=== PATIENT | female | born 2000 | race Caucasian/White ===

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

== ENCOUNTER 2022-09-11 08:55 | Emergency (ER) | payer OTHER ==
[2022-09-11 09:29] LABS: Absolute Neutrophil Ct (ANC) 4.43 x10^3/uL (1.4-6.9); Basophil (Absolute #) 0.02 x10^3/uL (0-0.4); Eosinophil % 0.5 % (0.00-5.0); Eosinophil (Absolute #) 0.03 x10^3/uL (0-0.5); Lymphocyte (Absolute #) 1.52 x10^3/uL (1.0-4.6); Lymphocytes % 23.9 % (24.0-44.0); Mean Cell Volume 91.4 fL (78-100); Mean Corpuscular Hemoglobin 31.3 pg (26-32); Mean Corpuscular Hgb Concent. 34.3 g/dL (32-36); Monocyte (Absolute #) 0.35 x10^3/uL (0.0-1.3); Monocytes % 5.5 % (0.0-12.0); Neutrophil % 69.6 % (36.0-66.0); Platelet Count 257 x10^3/uL (150-450); Red Blood Count 3.83 x10^6/uL (4.1-5.4); White Blood Count 6.4 x10^3/uL (4.0-10.5)
[2022-09-11 09:44] LABS: ALBUMIN 4.5 g/dL (3.5-5.0); ALKALINE PHOSPHATASE 55 U/L (38-126); ANION GAP 10.1 MEQ/L (5-15); BLOOD UREA NITROGEN 7 mg/dL (7-17); CHLORIDE 105 mmol/L (98-107); Calcium 9.1 mg/dL (8.4-10.2); Carbon Dioxide 24 mmol/L (22-30); Creatinine 1 0.54 mg/dL (0.52-1.04); EST GLOMERULAR FILTRATION RATE > 60.0 ML/MIN; Glucose 95 mg/dL (74-106); Potassium 3.8 mmol/L (3.5-5.1); SGOT/AST 20 U/L (14-36); SGPT/ALT 21 U/L (0-35); SODIUM 135 mmol/L (137-145); Total Protein 7.3 g/dL (6.3-8.2)
[2022-09-11 09:56] LABS: Epithelial Cells RARE /HPF (FEW); Mucus SLIGHT /HPF (NEGATIVE)
[2022-09-11 10:00] LABS: Appearance CLEAR (CLEAR); Bilirubin NEGATIVE (NEGATIVE); Dipstick done @ ? MAIN LAB; Glucose NEGATIVE (NEGATIVE); Ketones NEGATIVE (NEGATIVE); Nitrite NEGATIVE (NEGATIVE); Protein,Urine Dip NEGATIVE (Negative); RBC NEGATIVE Ery/ul (0-5); Urobilinogen 0.2 mg/dL (0-1)
[2022-09-11 10:01] LABS: Urine Cultured Indicated? NO
--- NOTE | 2022-09-11 11:22 | ERPHSYRPT ---
- History of Present Illness Time Seen by Provider: 09/11/22 10:47 Source: patient Exam Limitations: no limitations Patient Subjective Stated Complaint: C/O some dark bleeding from vagina this am when getting into the shower; no clots. Indicates she has been cramping for a few weeks. OB is Dr. Hoskins. States she had an ultrasound on , 09/09/22 due to the cramping issue. Dr. Hoskins advised patient to come into the ED today due to the new bleeding this am. Triage Nursing Assessment: Patient ambulated back to ED without difficulties. She is alert and oriented. NO SOB. No active vaginal bleeding at this time; she does have on a maxi pad. Physician History: 21-year-old 2 para 1 at almost 6 weeks gestation presented in the ER with chief complaint of pelvic cramping and vaginal bleeding. Patient reports she has been having off-and-on cramping for last couple of weeks and was seen at primary OB and had ultrasound done which was okay per patient. This morning she was in the shower and noticed dark red blood per vaginal without any clots or passing of tissues. She called her OB and was recommended to be seen in the ER. Denies any urinary symptoms. Timing/Duration: today, gradual onset, improved Activites at Onset: other Quality: cramping Onset Location: pelvic pain Pain Radiation: none Severity of Pain-Max: mild Severity of Pain-Current: none Prior abdominal problems: none Modifying Factors: Improves With: nothing Associated Symptoms: denies symptoms Allergies/Adverse Reactions: No Known Drug Allergies Allergy (Verified 09/11/22 09:18) Home Medications: Vits W-Ca,Fe,FA(<1Mg) [] 1 each PO DAILY 03/12/19 [History] Hx Tetanus, Diphtheria Vaccination/Date Given: Yes Hx Influenza Vaccination/Date Given: Yes Hx Pneumococcal Vaccination/Date Given: No Travel Risk - International Travel Have you traveled outside of the country in past 3 weeks: No - Coronavirus Screening Are you exhibiting any of the following symptoms?: No Close contact with a COVID-19 positive Pt in past 14-21 Days: No - Vaccine Status Have you recieved a Covid-19 vaccination: Yes [employer]: [employer] - Vaccination Dates Date of 2cond Vaccination (if applicable): 2020 - Review of Systems Constitutional: No Symptoms Eyes: No Symptoms Ears, Nose, & Throat: No Symptoms Respiratory: No Symptoms Cardiac: No Symptoms Abdominal/Gastrointestinal: No Symptoms Genitourinary Symptoms: , Vaginal Bleeding Musculoskeletal: No Symptoms Skin: No Symptoms Neurological: No Symptoms Psychological: No Symptoms Hematologic/Lymphatic: No Symptoms Immunological/Allergic: No Symptoms - Past Medical History Pertinent Past Medical History: Yes Cardiac History: Other Other Medical History: Heart murmur - Past Surgical History Past Surgical History: Yes - Social History Smoking Status: Never smoker Exposure to second hand smoke: No Drug Use: none Patient Lives Alone: No - Female History Hx Now: Yes Gestational Age: 6 weeks - Nursing Vital Signs Nursing Vital Signs: Initial Vital Signs Temperature 98.5 F 09/11/22 09:06 Pulse Rate 99 H 09/11/22 09:06 Respiratory Rate 16 09/11/22 09:06 Blood Pressure 137/94 09/11/22 09:06 O2 Sat by Pulse Oximetry 99 09/11/22 09:06 Pain Scale Pain Intensity 0 - Physical Exam General Appearance: no apparent distress Eye Exam: PERRL/EOMI Ears, Nose, Throat Exam: normal ENT inspection Neck Exam: normal inspection, full range of motion Respiratory Exam: normal breath sounds, lungs clear Cardiovascular Exam: regular rate/rhythm, normal heart sounds Gastrointestinal/Abdomen Exam: soft, normal bowel sounds, No tenderness Back Exam: normal inspection, normal range of motion Extremity Exam: normal inspection, normal range of motion Neurologic Exam: alert, oriented x 3, normal mood/affect Skin Exam: normal color SpO2 Interpretation: normal SpO2: 99 O2 Delivery: Room Air Ordered Tests: Active Orders 24 hr Category Date Time Status OB FOLLOW UP PER [facility] [US] Stat Exams 09/11/22 09:21 Completed CBC W DIFF Stat Lab 09/11/22 09:25 Completed CMP Stat Lab 09/11/22 09:25 Completed HCG, Quantitative (Inhouse) Stat Lab 09/11/22 09:25 Completed UA W/RFX CULTURE Stat Lab 09/11/22 09:23 Completed Lab/Rad Data: Laboratory Result Diagrams 09/11/22 09:25 09/11/22 09:25 Laboratory Results 09/11/22 09/11/22 09/11/22 Range/Units 11:52 09:25 09:25 WBC (4.0-10.5) x10^3/uL RBC (4.1-5.4) x10^6/uL Hgb (12.0-16.0) g/dL Hct (35-47) % MCV (78-100) fL MCH (26-32) pg MCHC (32-36) g/dL RDW (11.5-14.0) % Plt Count (150-450) x10^3/uL MPV (7.5-11.0) fL Gran % (36.0-66.0) % Immature Gran % (Auto) (0.00-0.4) % Nucleat RBC Rel Count (0.00-0.1) % Eos # (Auto) (0-0.5) x10^3/uL Immature Gran # (Auto) (0.00-0.03) x10^3u/L Absolute Lymphs (auto) (1.0-4.6) x10^3/uL Absolute Monos (auto) (0.0-1.3) x10^3/uL Absolute Nucleated RBC (0.00-0.01) x10^3u/L Lymphocytes % (24.0-44.0) % Monocytes % (0.0-12.0) % Eosinophils % (0.00-5.0) % Basophils % (0.0-0.4) % Absolute Granulocytes (1.4-6.9) x10^3/uL Basophils # (0-0.4) x10^3/uL Sodium 135 L (137-145) mmol/L Potassium 3.8 (3.5-5.1) mmol/L Chloride 105 (98-107) mmol/L Carbon Dioxide 24 (22-30) mmol/L Anion Gap 10.1 (5-15) MEQ/L BUN 7 (7-17) mg/dL Creatinine 0.54 (0.52-1.04) mg/dL Estimated GFR > 60.0 ML/MIN Glucose 95 (74-106) mg/dL Calcium 9.1 (8.4-10.2) mg/dL Total Bilirubin 0.60 (0.2-1.3) mg/dL AST 20 (14-36) U/L ALT 21 (0-35) U/L Alkaline Phosphatase 55 (38-126) U/L Serum Total Protein 7.3 (6.3-8.2) g/dL Albumin 4.5 (3.5-5.0) g/dL Beta HCG, Quant mIU/ml Urinalys Dipstick Clnc Urine Color (YELLOW) Urine Appearance (CLEAR) Urine pH (5-6) Ur Specific [place] (1.005-1.025) POC Urine Protein Conf (Negative) Urine Ketones (NEGATIVE) Urine Nitrite (NEGATIVE) Urine Bilirubin (NEGATIVE) Urine Urobilinogen (0-1) mg/dL Urine Leukocytes (NEGATIVE) Urine WBC (Auto) (0-5) /HPF Urine RBC (Auto) (0-2) /HPF U Epithel Cells (Auto) (FEW) /HPF Urine Bacteria (Auto) (NEGATIVE) /HPF Urine RBC (0-5) Irving/ul Urine Mucus (Auto) (NEGATIVE) /HPF Ur Culture Indicated? Urine Glucose (NEGATIVE) mg/dL ABO Group A Rh Factor POSITIVE Antibody Screen NEGATIVE (NEGATIVE) 09/11/22 09/11/22 Range/Units 09:25 09:23 WBC 6.4 (4.0-10.5) x10^3/uL RBC 3.83 L (4.1-5.4) x10^6/uL Hgb 12.0 (12.0-16.0) g/dL Hct 35.0 (35-47) % MCV 91.4 (78-100) fL MCH 31.3 (26-32) pg MCHC 34.3 (32-36) g/dL RDW 12.0 (11.5-14.0) % Plt Count 257 (150-450) x10^3/uL MPV 9.0 (7.5-11.0) fL Gran % 69.6 H (36.0-66.0) % Immature Gran % (Auto) 0.2 (0.00-0.4) % Nucleat RBC Rel Count 0.0 (0.00-0.1) % Eos # (Auto) 0.03 (0-0.5) x10^3/uL Immature Gran # (Auto) 0.01 (0.00-0.03) x10^3u/L Absolute Lymphs (auto) 1.52 (1.0-4.6) x10^3/uL Absolute Monos (auto) 0.35 (0.0-1.3) x10^3/uL Absolute Nucleated RBC 0.00 (0.00-0.01) x10^3u/L Lymphocytes % 23.9 L (24.0-44.0) % Monocytes % 5.5 (0.0-12.0) % Eosinophils % 0.5 (0.00-5.0) % Basophils % 0.3 (0.0-0.4) % Absolute Granulocytes 4.43 (1.4-6.9) x10^3/uL Basophils # 0.02 (0-0.4) x10^3/uL Sodium (137-145) mmol/L Potassium (3.5-5.1) mmol/L Chloride (98-107) mmol/L Carbon Dioxide (22-30) mmol/L Anion Gap (5-15) MEQ/L BUN (7-17) mg/dL Creatinine (0.52-1.04) mg/dL Estimated GFR ML/MIN Glucose (74-106) mg/dL Calcium (8.4-10.2) mg/dL Total Bilirubin (0.2-1.3) mg/dL AST (14-36) U/L ALT (0-35) U/L Alkaline Phosphatase (38-126) U/L Serum Total Protein (6.3-8.2) g/dL Albumin (3.5-5.0) g/dL Beta HCG, Quant mIU/ml Urinalys Dipstick Clnc MAIN LAB Urine Color YELLOW (YELLOW) Urine Appearance CLEAR (CLEAR) Urine pH 7.0 (5-6) Ur Specific [place] 1.020 (1.005-1.025) POC Urine Protein Conf NEGATIVE (Negative) Urine Ketones NEGATIVE (NEGATIVE) Urine Nitrite NEGATIVE (NEGATIVE) Urine Bilirubin NEGATIVE (NEGATIVE) Urine Urobilinogen 0.2 (0-1) mg/dL Urine Leukocytes NEGATIVE (NEGATIVE) Urine WBC (Auto) NONE (0-5) /HPF Urine RBC (Auto) NONE (0-2) /HPF U Epithel Cells (Auto) RARE (FEW) /HPF Urine Bacteria (Auto) NONE (NEGATIVE) /HPF Urine RBC NEGATIVE (0-5) [place]/ul Urine Mucus (Auto) SLIGHT A (NEGATIVE) /HPF Ur Culture Indicated? NO Urine Glucose NEGATIVE (NEGATIVE) mg/dL ABO Group Rh Factor Antibody Screen (NEGATIVE) - Progress Progress: improved Air Movement: good Progress Note: 09/11/22 11:20 21-year-old is evaluated for vaginal bleeding. She is offered fluid but she does not want and preferred to take orally. Baseline work-up fairly unremarkable. Obtain ultrasound with heart tone in 110 and 5 weeks 6 day with small subchorionic hemorrhage. She is recommended pelvic rest, increase hydration and outpatient OB follow-up. Blood Culture(s) Obtained: No Antibiotics given: No Counseled pt/family regarding: lab results, diagnosis, need for follow-up, rad results - Departure Departure Disposition: Home Clinical Impression: Vaginal bleeding affecting early Condition: Stable Critical Care Time: No Referrals: BRYAN HOSKINS MD [Primary Care Provider] - Follow up/PCP as directed (In 2 days for reevaluation) Instructions: Threatened Miscarriage (DC), Bleeding in Early (DC) Additional Instructions: Drink plenty of fluids to keep yourself well-hydrated. Pelvic rest. Follow-up with your primary OB for reevaluation in 2 days. Return to ER for increased cramping, vaginal bleeding etc.
[2022-09-11 12:10] VITALS: BP 137/95; PULSE 102
[2022-09-11 13:04] VITALS: O2SAT 99
[2022-09-11 13:04] LABS: ABO TYPING A; Antibody Screen NEGATIVE (NEGATIVE); RH TYPING POSITIVE
--- NOTE | 2022-09-11 21:10 | XRAY ---
Indication: Bleeding. Two-dimensional transvaginal early OB ultrasound performed. Comparison: September 09, 2022 Again single intrauterine gestational sac with a single pole and yolk sac. Mean crown-rump length measures 0.28 cm corresponding to 5 weeks 6 days. heart rate 110 BPM. Tiny 2 x 2 x 3 mm subchorionic hemorrhage. Impression: Again single intrauterine measuring 5 weeks 6 days. heart rate 110 BPM. Tiny subchorionic hemorrhage. Comment: Preliminary report was given.
== END 2022-09-11 12:09 | disposition home or self-care (01) ==
LOC: ED 08:55
DX: O20.9 Hemorrhage in early pregnancy, unspecified (principal); Z3A.01 Less than 8 weeks gestation of pregnancy; R10.2 Pelvic and perineal pain
CPT/HCPCS: 36415; 76816; 80053; 81015; 84702; 85025; 86850; 86900; 86901; 99283

== ENCOUNTER 2023-04-25 04:59 | Inpatient (IN) | payer BC ==
[~2023-04-25 04:59] MED LIST: BRETHINE 1 MG/ML SQ PRN
[2023-04-25] MEDS ORDERED: Lactated Ringers 1,000 ML IV SCH (05:00)
[2023-04-25] MEDS ORDERED: Nubain 10 MG/ML IV PRN (05:00)
[2023-04-25] MEDS ORDERED: STADOL 2 MG IV PRN (05:00)
[2023-04-25] MEDS ORDERED: Zofran 4 MG/2 ML VIAL IV PRN (05:00)
[2023-04-25 05:43] LABS: Absolute Neutrophil Ct (ANC) 5.36 x10^3/uL (1.4-6.9); BASOPHIL % 0.4 % (0.0-0.4); Basophil (Absolute #) 0.03 x10^3/uL (0-0.4); Eosinophil % 0.3 % (0.00-5.0); Eosinophil (Absolute #) 0.02 x10^3/uL (0-0.5); Hematocrit 33.3 % (35-47); Hemoglobin 11.4 g/dL (12.0-16.0); IMMATURE GRAN # 0.09 x10^3u/L (0.00-0.03); IMMATURE GRAN % 1.2 % (0.00-0.4); Lymphocyte (Absolute #) 1.68 x10^3/uL (1.0-4.6); Lymphocytes % 21.5 % (24.0-44.0); Mean Cell Volume 92.8 fL (78-100); Mean Corpuscular Hemoglobin 31.8 pg (26-32); Mean Corpuscular Hgb Concent. 34.2 g/dL (32-36); Mean Platelet Volume 9.4 fL (7.5-11.0); Monocyte (Absolute #) 0.62 x10^3/uL (0.0-1.3); Monocytes % 7.9 % (0.0-12.0); Neutrophil % 68.7 % (36.0-66.0); Platelet Count 199 x10^3/uL (150-450); Red Blood Count 3.59 x10^6/uL (4.1-5.4); Red Cell Distribution Width 12.4 % (11.5-14.0); White Blood Count 7.8 x10^3/uL (4.0-10.5)
[2023-04-25] MEDS: PITOCIN 30 UNITS/ LR 500 ML 30 UNITS/500 ML PLAST..BAG IV SCH ×2 (05:45→05:47)
[2023-04-25 06:08] LABS: Amphetamine,Urine NEGATIVE (NEGATIVE); Barbiturate,Urine NEGATIVE (NEGATIVE); Benzodiazepine,Urine NEGATIVE (NEGATIVE); Cocaine,Urine NEGATIVE (NEGATIVE); Methadone,Urine NEGATIVE (NEGATIVE); Opiate,Urine NEGATIVE (NEGATIVE); PCP,Urine NEGATIVE (NEGATIVE); THC,Urine NEGATIVE (NEGATIVE)
[2023-04-25 06:28] LABS: ABO TYPING A; Antibody Screen NEGATIVE (NEGATIVE); RH TYPING POSITIVE
[2023-04-25] MEDS ORDERED: Lactated Ringers 1,000 ML IV ONE (07:29)
[2023-04-25] MEDS ORDERED: Ephedrine Sulfate 50 MG/ML IV PRN (07:29)
[2023-04-25] MEDS ORDERED: FENTANYL 2 MCG-BUPIV 0.125%-NS 250 ML Epidur 250 ML EPIDURAL SCH (07:30)
[2023-04-25] MEDS ORDERED: MOTRIN 400 MG PO PRN (12:00)
[2023-04-25] MEDS ORDERED: XYLOCAINE 1% HCL 20 ML MDV IJ PRN (12:00)
[2023-04-25] MEDS ORDERED: LANSINOH 40 GM TOP PRN (12:00)
[2023-04-25] MEDS ORDERED: Dermoplast Spray TP PRN (12:00)
[2023-04-25] MEDS: TUCKS TP PRN (15:22)
[2023-04-25] MEDS: TYLENOL EXTRA STRENGTH 500 MG PO PRN (20:10)
[2023-04-26] MEDS: TYLENOL EXTRA STRENGTH 500 MG PO PRN ×2 (02:13→11:27)
[2023-04-26 04:36] LABS: Absolute Neutrophil Ct (ANC) 4.97 x10^3/uL (1.4-6.9); BASOPHIL % 0.5 % (0.0-0.4); Basophil (Absolute #) 0.04 x10^3/uL (0-0.4); Eosinophil % 0.4 % (0.00-5.0); Eosinophil (Absolute #) 0.03 x10^3/uL (0-0.5); Hematocrit 30.2 % (35-47); Hemoglobin 10.2 g/dL (12.0-16.0); IMMATURE GRAN # 0.07 x10^3u/L (0.00-0.03); IMMATURE GRAN % 0.9 % (0.00-0.4); Lymphocyte (Absolute #) 1.98 x10^3/uL (1.0-4.6); Lymphocytes % 25.6 % (24.0-44.0); Mean Cell Volume 93.8 fL (78-100); Mean Corpuscular Hemoglobin 31.7 pg (26-32); Mean Corpuscular Hgb Concent. 33.8 g/dL (32-36); Mean Platelet Volume 9.4 fL (7.5-11.0); Monocyte (Absolute #) 0.63 x10^3/uL (0.0-1.3); Monocytes % 8.2 % (0.0-12.0); Neutrophil % 64.4 % (36.0-66.0); Platelet Count 156 x10^3/uL (150-450); Red Blood Count 3.22 x10^6/uL (4.1-5.4); Red Cell Distribution Width 12.4 % (11.5-14.0); White Blood Count 7.7 x10^3/uL (4.0-10.5)
[2023-04-26 08:00] VITALS: RESP 16; O2SAT 96
--- NOTE | 2023-04-26 09:44 | PCM.DS ---
Discharge Summary Date of Admission: 04/25/23 08:43 Admitting Physician: BRYAN HOSKINS Primary Care Provider: BRYAN HOSKINS Allergies Allergies No Known Drug Allergies Allergy (Verified 09/21/22 09:13) Hospital Summary - Hospital Course Hospital Course: patient induced and had an uncomplicated at 39wks, well and has no problems or concerns. - Vitals & Intake/Output Vital Signs: Vital Signs Temperature 97.9 F 04/26/23 07:56 Pulse Rate 78 04/26/23 07:56 Respiratory Rate 16 04/26/23 07:56 Blood Pressure 126/79 04/26/23 07:56 O2 Sat by Pulse Oximetry 96 04/26/23 07:56 Intake & Output: Intake & Output 04/23/23 04/24/23 04/25/23 04/26/23 11:59 11:59 11:59 11:59 Intake Total 1650 650 Output Total 600 Balance 1650 50 Weight 68.039 kg - Lab Result Diagrams: 04/26/23 04:27 Lab Results-Last 24 Hrs: Lab Results-Last 24 Hours 04/26/23 Range/Units 04:27 WBC 7.7 (4.0-10.5) x10^3/uL RBC 3.22 L (4.1-5.4) x10^6/uL Hgb 10.2 L (12.0-16.0) g/dL Hct 30.2 L (35-47) % MCV 93.8 (78-100) fL MCH 31.7 (26-32) pg MCHC 33.8 (32-36) g/dL RDW 12.4 (11.5-14.0) % Plt Count 156 (150-450) x10^3/uL MPV 9.4 (7.5-11.0) fL Gran % 64.4 (36.0-66.0) % Immature Gran % (Auto) 0.9 H (0.00-0.4) % Nucleat RBC Rel Count 0.0 (0.00-0.1) % Eos # (Auto) 0.03 (0-0.5) x10^3/uL Immature Gran # (Auto) 0.07 H (0.00-0.03) x10^3u/L Absolute Lymphs (auto) 1.98 (1.0-4.6) x10^3/uL Absolute Monos (auto) 0.63 (0.0-1.3) x10^3/uL Absolute Nucleated RBC 0.00 (0.00-0.01) x10^3u/L Lymphocytes % 25.6 (24.0-44.0) % Monocytes % 8.2 (0.0-12.0) % Eosinophils % 0.4 (0.00-5.0) % Basophils % 0.5 (0.0-0.4) % Absolute Granulocytes 4.97 (1.4-6.9) x10^3/uL Basophils # 0.04 (0-0.4) x10^3/uL Discharge Exam General Appearance: no apparent distress Neurologic Exam: alert, oriented x 3 Respiratory Exam: normal breath sounds, lungs clear, No respiratory distress Cardiovascular Exam: regular rate/rhythm, normal heart sounds Gastrointestinal/Abdomen Exam: soft, No tenderness, No mass Skin Exam: normal color, warm, dry Final Diagnosis/Problem List - Final Discharge Diagnosis/Problem (1) Vaginal delivery Current Visit: No Status: Acute Assessment & Plan: no complications, doing great . Code(s): O80 - ENCOUNTER FOR FULL-TERM UNCOMPLICATED DELIVERY (2) (infant) Current Visit: No Status: Acute Code(s): Z78.9 - OTHER SPECIFIED HEALTH STATUS - Discharge Disposition: Home, Self-Care Condition: Stable Prescriptions: Continue Vits W-Ca,Fe,FA(<1Mg) [] 1 each PO DAILY Discontinued Ferrous Sulfate 1 each PO DAILY Follow up with: BRYAN HOSKINS MD [Primary Care Provider] - 6 weeks
[2023-04-26] MEDS ORDERED: Adacel Vial IM ONE (10:00)
[2023-04-26] MEDS ORDERED: Docusate Sodium 100 MG PO SCH (10:00)
[2023-04-26] MEDS ORDERED: FERREX 150 PO SCH (10:00)
[2023-04-26] MEDS: TUCKS TP PRN (10:04)
[2023-04-26 14:50] VITALS: BP 122/85; PULSE 85; TEMP 97.2
== END 2023-04-26 15:10 | disposition home or self-care (01) | DRG 807 ==
LOC: OB 04:59 → OBSVTOIN 08:43 → OB 08:43 → MED SURG 21:14 → UNDODISIN 04-26 15:10
PROVIDERS: ADMIT Family Medicine; ATTEND Family Medicine
PROC: 10E0XZZ Delivery of Products of Conception, External Approach (ICD-10-PCS; principal; 2023-04-25)
DX: O69.81X0 Labor and delivery complicated by cord around neck, without compression, not applicable or unspecified (principal); Z37.0 Single live birth; Z3A.39 39 weeks gestation of pregnancy; Z20.828 Contact with and (suspected) exposure to other viral communicable diseases
CPT/HCPCS: 36415; 80307; 85025; 86850; 86900; 86901; 90471; 90715; J2590; A9270-GY